=== PATIENT | female | born 1960 | race African-American/Black ===

== ENCOUNTER 2018-08-07 12:52 | Emergency (ER) | payer MEDICAID ==
[~2018-08-07] VITALS: Ht 162.6 cm; Wt 120.0 kg
[2018-08-07] MEDS ORDERED: BACITRACIN 15GM TUBE TOP ONE (15:00)
[2018-08-07] MEDS ORDERED: TRAMADOL 50MG TABLET PO ONE (15:00)
[2018-08-07 17:41] VITALS: BP 178/82
[2018-08-08] MEDS ORDERED: AMLO5TAB88 MT (11:34)
[2018-08-08] MEDS ORDERED: FURO40TA5 MT (11:34)
[2018-08-08] MEDS ORDERED: METO5TAB69 MT (11:34)
[2018-08-08] MEDS ORDERED: FERR220S12 PO (11:34)
== END 2018-08-07 17:50 | disposition home or self-care (01) ==
LOC: ER 13:11
DX: S80.812A Abrasion, left lower leg, initial encounter (principal); S80.11XA Contusion of right lower leg, initial encounter; W05.0XXA Fall from non-moving wheelchair, initial encounter; Y93.9 Activity, unspecified; Y92.9 Unspecified place or not applicable; Z88.0 Allergy status to penicillin
CPT/HCPCS: 73590; 99283; Z7610

== ENCOUNTER 2018-08-08 06:23 | Inpatient (IN) | payer MEDICAID ==
[2018-08-08] VITALS (7 sets, daily range): BP systolic 124–211; BP diastolic 62–115
[~2018-08-08] VITALS: Ht 162.6 cm; Wt 103.1 kg
[2018-08-08] MEDS ORDERED: FUROSEMIDE 40MG/4ML VIAL IVP ONE (07:00)
[2018-08-08] MEDS: VANCOMYCIN 1 G PREMIX 200 ML IV SCH ×2 (07:00→09:00)
[2018-08-08] MEDS ORDERED: ALBUTEROL (0.083%) 2.5MG/3ML NEB HHN STA (07:00)
[2018-08-08 07:11] LABS: HEMATOCRIT. 34.5 % (36.0-48.0); HEMOGLOBIN. 10.8 g/dL (12.0-16.0); MEAN CORPUSCULAR HEMOGLOBIN 27.9 pg (28.0-32.0); MEAN CORPUSCULAR VOLUME 89.1 fL (81.0-99.0); MEAN PLATELET VOLUME 9.7 fl (7.4-10.4); PLATELET 283 x1000/uL (130-400); RED BLOOD CELL COUNT 3.88 mill/uL (4.2-5.4); RED CELL DISTRIBUTION WIDTH 15.9 % (11.6-14.6)
[2018-08-08] MEDS ORDERED: HYDROCODONE/ACETAMINOPHEN 5/325MG TABLET PO ONE (07:15)
[2018-08-08] MEDS ORDERED: ONDANSETRON HCL 4MG/2ML INJ IV ONE (07:15)
[2018-08-08] MEDS ORDERED: LEVOFLOXACIN 500MG PREMIX 100 ML IV ONE (07:15)
[2018-08-08 07:18] LABS: CHLORIDE 108 mEq/L (98-107)
[2018-08-08 07:20] LABS: INR 1.1; PARTIAL THROMBOPLASTIN TIME 30.6 sec (23.4-31.0); PROTHROMBIN TIME 10.6 sec (9.1-11.1)
[2018-08-08 07:29] LABS: PLATELET ESTIMATE NORMAL
[2018-08-08 10:36] LABS: CLARITY URINE CLOUDY (CLEAR); COLOR URINE YELLOW (YELLOW); KETONES URINE NEGATIVE (NEGATIVE); LEUKOCYTE ESTERASE URINE NEGATIVE (NEGATIVE); NITRITE URINE NEGATIVE (NEGATIVE); OCCULT BLOOD URINE 1+ (NEGATIVE); PROTEIN URINE 3+ (NEGATIVE); SPECIFIC GRAVITY URINE 1.016 (1.005-1.030); UROBILINOGEN URINE 0.2 E.U./dL (0.2-1.0)
[2018-08-08] MEDS ORDERED: FURO40TA5 MT (11:34)
[2018-08-08] MEDS ORDERED: METO5TAB69 MT (11:34)
[2018-08-08] MEDS ORDERED: AMLO5TAB88 MT (11:34)
[2018-08-08] MEDS ORDERED: FERR220S12 PO (11:34)
[2018-08-08] MEDS ORDERED: HYDRALAZINE 20MG/ML VIAL IV PRN (13:30)
[2018-08-08] MEDS ORDERED: ONDANSETRON HCL 4MG/2ML INJ IV PRN (13:30)
[2018-08-08] MEDS ORDERED: ACETAMINOPHEN 325MG TABLET PO PRN (13:30)
[2018-08-08] MEDS ORDERED: IPRATROPIUM/ALBUTEROL 0.5-3(2.5)MG/3ML NEB INH PRN (13:30)
[2018-08-08] MEDS ORDERED: MAGNESIUM/ALUMINUM HYDROXIDE/SIMETHICONE 30ML UDC PO PRN (13:30)
[2018-08-08] MEDS ORDERED: GUAIFENESIN 200MG/10ML SUGAR FREE UDC PO PRN (13:30)
[2018-08-08] MEDS ORDERED: DIPHENHYDRAMINE 50MG/ML VIAL IV PRN (13:30)
[2018-08-08] MEDS ORDERED: HYDROCODONE/ACETAMINOPHEN 5/325MG TABLET PO PRN (13:45)
[2018-08-08] MEDS: HYDRALAZINE HCL 50MG TABLET PO SCH ×2 (14:06→22:00)
[2018-08-08] MEDS: SODIUM CHLORIDE 0.9% INJ 3ML FLUSH IVF SCH ×2 (14:07→22:48)
[2018-08-08] MEDS: ENOXAPARIN 30MG/0.3ML SYR SUBCUT SCH (14:11)
[2018-08-08] MEDS: NIFEDIPINE XL 60MG TAB PO SCH (14:29)
[2018-08-08] MEDS: CITRIC ACID/SODIUM CITRATE SOLN 30ML UDC PO SCH ×2 (15:27→17:52)
[2018-08-08] MEDS: FUROSEMIDE 100MG/10ML VIAL IVP SCH ×2 (15:28→22:48)
[2018-08-08 16:14] LABS: BG CARBOXYHEMOGLOBIN 0.3 % (0.5-1.5); BG DEOXYHEMOGLOBIN 12.8 % (0.0-5.0); BG FRACTION INSPIRED OXYGEN 32; BG METHEMOGLOBIN 0.2 % (0.0-1.5); BG OXYGEN SATURATION 87.1 % (92.0-98.5); BG OXYHEMOGLOBIN 86.7 % (94.0-97.0); BG PCO2 42.2 mmHg (35.0-45.0); BG PH 7.224 (7.350-7.450); BG PO2 59.2 mmHg (75.0-100.0); BG SAMPLE SITE RIGHT BRACHIAL; BG TOTAL HEMOGLOBIN 10.5 g/dL (12.0-18.0); BG VENT MODE NASAL CANNULA
[2018-08-08] MEDS ORDERED: SODIUM POLYSTYRENE SULFONATE 15 G/60 ML BOT PO NR (17:00)
[2018-08-09] VITALS (12 sets, daily range): BP systolic 127–150; BP diastolic 60–77
[2018-08-09] MEDS: HYDRALAZINE HCL 50MG TABLET PO SCH ×3 (06:00→22:00)
[2018-08-09] MEDS: SODIUM CHLORIDE 0.9% INJ 3ML FLUSH IVF SCH ×3 (06:41→22:02)
[2018-08-09 06:55] LABS: HEMATOCRIT. 31.9 % (36.0-48.0); HEMOGLOBIN. 10.2 g/dL (12.0-16.0); MEAN CORPUSCULAR HEMOGLOBIN 28.1 pg (28.0-32.0); MEAN CORPUSCULAR VOLUME 88.2 fL (81.0-99.0); MEAN PLATELET VOLUME 9.2 fl (7.4-10.4); PLATELET 231 x1000/uL (130-400); RED BLOOD CELL COUNT 3.62 mill/uL (4.2-5.4); RED CELL DISTRIBUTION WIDTH 15.6 % (11.6-14.6)
[2018-08-09] MEDS: ENOXAPARIN 30MG/0.3ML SYR SUBCUT SCH ×2 (09:00→09:41)
[2018-08-09] MEDS: CITRIC ACID/SODIUM CITRATE SOLN 30ML UDC PO SCH ×4 (09:00→17:43)
[2018-08-09 09:09] LABS: PHOSPHORUS 8.7 mg/dL (2.5-4.9)
[2018-08-09] MEDS: NIFEDIPINE XL 60MG TAB PO SCH (09:41)
[2018-08-09] MEDS ORDERED: SODIUM POLYSTYRENE SULFONATE 15 G/60 ML BOT PO NR (11:00)
[2018-08-09] MEDS ORDERED: LIDOCAINE HCL/EPINEPHRINE 1%-EPI 1:100,000 20 ML VIAL INFIL NR (11:15)
[2018-08-09] MEDS: SODIUM BICARBONATE 650 MG TABLET PO SCH ×3 (11:33→17:43)
[2018-08-09 12:38] LABS: PLATELET ESTIMATE NORMAL
[2018-08-09] MEDS: FUROSEMIDE 100MG/10ML VIAL IVP SCH ×2 (15:20→22:02)
[2018-08-09] MEDS: SODIUM HYPOCHLORITE 0.125% 473ML SOLUTION TOP SCH (15:20)
[2018-08-10] VITALS (12 sets, daily range): BP systolic 116–163; BP diastolic 57–92
[2018-08-10] MEDS: HYDRALAZINE HCL 50MG TABLET PO SCH ×3 (06:00→23:10)
[2018-08-10] MEDS: FUROSEMIDE 100MG/10ML VIAL IVP SCH ×3 (06:12→23:10)
[2018-08-10] MEDS: SODIUM CHLORIDE 0.9% INJ 3ML FLUSH IVF SCH ×3 (06:12→22:00)
[2018-08-10 06:43] LABS: HEMATOCRIT. 29.8 % (36.0-48.0); HEMOGLOBIN. 9.2 g/dL (12.0-16.0); MEAN CORPUSCULAR HEMOGLOBIN 27.6 pg (28.0-32.0); MEAN CORPUSCULAR VOLUME 89.4 fL (81.0-99.0); MEAN PLATELET VOLUME 9.3 fl (7.4-10.4); PLATELET 232 x1000/uL (130-400); RED BLOOD CELL COUNT 3.33 mill/uL (4.2-5.4); RED CELL DISTRIBUTION WIDTH 15.7 % (11.6-14.6)
[2018-08-10 07:53] LABS: PHOSPHORUS 8.7 mg/dL (2.5-4.9)
[2018-08-10] MEDS: CITRIC ACID/SODIUM CITRATE SOLN 30ML UDC PO SCH ×3 (08:45→17:00)
[2018-08-10] MEDS: ENOXAPARIN 30MG/0.3ML SYR SUBCUT SCH ×3 (08:45→09:00)
[2018-08-10] MEDS: NIFEDIPINE XL 60MG TAB PO SCH (08:46)
[2018-08-10] MEDS: SODIUM BICARBONATE 650 MG TABLET PO SCH ×3 (08:46→18:13)
[2018-08-10] MEDS: SODIUM HYPOCHLORITE 0.125% 473ML SOLUTION TOP SCH (13:53)
[2018-08-10] MEDS: SODIUM POLYSTYRENE SULFONATE 15 G/60 ML BOT PO SCH ×2 (13:53→21:00)
[2018-08-11] VITALS (10 sets, daily range): BP systolic 117–150; BP diastolic 54–84
[2018-08-11] MEDS: HYDRALAZINE HCL 50MG TABLET PO SCH ×3 (06:00→21:44)
[2018-08-11] MEDS: FUROSEMIDE 100MG/10ML VIAL IVP SCH ×3 (06:07→21:44)
[2018-08-11] MEDS: SODIUM CHLORIDE 0.9% INJ 3ML FLUSH IVF SCH ×3 (06:08→21:45)
[2018-08-11 06:59] LABS: MEAN CORPUSCULAR HEMOGLOBIN 28.2 pg (28.0-32.0); MEAN CORPUSCULAR VOLUME 90.8 fL (81.0-99.0); MEAN PLATELET VOLUME 9.6 fl (7.4-10.4); PLATELET 177 x1000/uL (130-400); RED CELL DISTRIBUTION WIDTH 16.2 % (11.6-14.6)
[2018-08-11 08:53] LABS: PHOSPHORUS 8.7 mg/dL (2.5-4.9)
[2018-08-11] MEDS: SODIUM HYPOCHLORITE 0.125% 473ML SOLUTION TOP SCH (09:00)
[2018-08-11] MEDS: SODIUM BICARBONATE 650 MG TABLET PO SCH ×3 (09:00→17:00)
[2018-08-11] MEDS: SODIUM POLYSTYRENE SULFONATE 15 G/60 ML BOT PO SCH ×2 (09:00→21:00)
[2018-08-11] MEDS: ENOXAPARIN 30MG/0.3ML SYR SUBCUT SCH (09:00)
[2018-08-11] MEDS: CITRIC ACID/SODIUM CITRATE SOLN 30ML UDC PO SCH ×3 (09:00→17:00)
[2018-08-11] MEDS: NIFEDIPINE XL 60MG TAB PO SCH (09:00)
[2018-08-11 10:55] LABS: PLATELET ESTIMATE NORMAL
[2018-08-11] MEDS ORDERED: EPOETIN ALFA 10000UNITS/ML VIAL SUBCUT NR (21:00)
[2018-08-12] VITALS (7 sets, daily range): BP systolic 129–148; BP diastolic 51–78
[2018-08-12] MEDS: HYDRALAZINE HCL 50MG TABLET PO SCH ×4 (06:05→22:05)
[2018-08-12] MEDS: SODIUM CHLORIDE 0.9% INJ 3ML FLUSH IVF SCH ×3 (06:05→22:04)
[2018-08-12] MEDS: FUROSEMIDE 100MG/10ML VIAL IVP SCH ×4 (06:05→22:05)
[2018-08-12 06:39] LABS: HEMATOCRIT. 26.9 % (36.0-48.0); HEMOGLOBIN. 8.6 g/dL (12.0-16.0); MEAN CORPUSCULAR HEMOGLOBIN 28.2 pg (28.0-32.0); MEAN CORPUSCULAR VOLUME 88.6 fL (81.0-99.0); MEAN PLATELET VOLUME 8.9 fl (7.4-10.4); PLATELET 239 x1000/uL (130-400); RED BLOOD CELL COUNT 3.04 mill/uL (4.2-5.4); RED CELL DISTRIBUTION WIDTH 15.5 % (11.6-14.6)
[2018-08-12 06:50] LABS: PLATELET ESTIMATE NORMAL
[2018-08-12 08:00] LABS: PHOSPHORUS 8.3 mg/dL (2.5-4.9)
[2018-08-12] MEDS: ENOXAPARIN 30MG/0.3ML SYR SUBCUT SCH ×2 (09:00→09:54)
[2018-08-12] MEDS: CITRIC ACID/SODIUM CITRATE SOLN 30ML UDC PO SCH ×3 (09:51→17:00)
[2018-08-12] MEDS: SODIUM POLYSTYRENE SULFONATE 15 G/60 ML BOT PO SCH ×2 (09:51→21:00)
[2018-08-12] MEDS: NIFEDIPINE XL 60MG TAB PO SCH (09:53)
[2018-08-12] MEDS: SODIUM BICARBONATE 650 MG TABLET PO SCH ×3 (09:53→17:00)
[2018-08-12] MEDS: SODIUM HYPOCHLORITE 0.125% 473ML SOLUTION TOP SCH (09:55)
[2018-08-12 21:17] LABS: PLATELET ESTIMATE NORMAL
[2018-08-13] VITALS: BP 139/75
[2018-08-13 04:00] VITALS: BP 142/65
[2018-08-13] MEDS: FUROSEMIDE 100MG/10ML VIAL IVP SCH ×3 (05:05→22:01)
[2018-08-13] MEDS: HYDRALAZINE HCL 50MG TABLET PO SCH ×3 (05:05→21:59)
[2018-08-13] MEDS: SODIUM CHLORIDE 0.9% INJ 3ML FLUSH IVF SCH ×3 (05:06→21:59)
[2018-08-13 06:03] LABS: HEMATOCRIT. 27.2 % (36.0-48.0); HEMOGLOBIN. 8.7 g/dL (12.0-16.0); MEAN CORPUSCULAR HEMOGLOBIN 28.2 pg (28.0-32.0); MEAN CORPUSCULAR VOLUME 88.4 fL (81.0-99.0); MEAN PLATELET VOLUME 9.5 fl (7.4-10.4); PLATELET 264 x1000/uL (130-400); RED BLOOD CELL COUNT 3.08 mill/uL (4.2-5.4); RED CELL DISTRIBUTION WIDTH 16.2 % (11.6-14.6)
[2018-08-13 08:00] VITALS: BP 126/69
[2018-08-13 08:48] LABS: PHOSPHORUS 8.4 mg/dL (2.5-4.9)
[2018-08-13] MEDS: SODIUM BICARBONATE 650 MG TABLET PO SCH ×3 (08:52→17:00)
[2018-08-13] MEDS: SODIUM HYPOCHLORITE 0.125% 473ML SOLUTION TOP SCH (08:52)
[2018-08-13] MEDS: ENOXAPARIN 30MG/0.3ML SYR SUBCUT SCH (08:55)
[2018-08-13] MEDS: CITRIC ACID/SODIUM CITRATE SOLN 30ML UDC PO SCH ×3 (08:55→17:00)
[2018-08-13] MEDS: NIFEDIPINE XL 60MG TAB PO SCH (08:56)
[2018-08-13 12:00] VITALS: BP 137/71
[2018-08-13] MEDS: CALCIUM ACETATE 667MG CAPSULE PO SCH ×2 (12:52→19:01)
[2018-08-13 16:00] VITALS: BP 136/67
[2018-08-13] MEDS ORDERED: HYDRALAZINE 10 MG in SODIUM CHLORIDE 0.9% 49.5 ML IV PRN (16:30)
[2018-08-13 20:00] VITALS: BP 149/77
[2018-08-14] VITALS: BP 180/79
[2018-08-14] MEDS: CLONIDINE 0.1MG TABLET PO PRN (03:56)
[2018-08-14 04:00] VITALS: BP 141/77
[2018-08-14 05:05] LABS: PLATELET ESTIMATE NORMAL
[2018-08-14] MEDS: FUROSEMIDE 100MG/10ML VIAL IVP SCH ×3 (06:03→21:25)
[2018-08-14] MEDS: HYDRALAZINE HCL 50MG TABLET PO SCH ×3 (06:04→21:25)
[2018-08-14] MEDS: SODIUM CHLORIDE 0.9% INJ 3ML FLUSH IVF SCH ×3 (06:09→22:00)
[2018-08-14 08:00] VITALS: BP 133/69
[2018-08-14] MEDS: CITRIC ACID/SODIUM CITRATE SOLN 30ML UDC PO SCH ×4 (09:00→17:00)
[2018-08-14] MEDS: ENOXAPARIN 30MG/0.3ML SYR SUBCUT SCH (09:00)
[2018-08-14] MEDS: SODIUM BICARBONATE 650 MG TABLET PO SCH ×3 (09:00→18:31)
[2018-08-14] MEDS: CALCIUM ACETATE 667MG CAPSULE PO SCH ×3 (09:56→18:31)
[2018-08-14] MEDS: NIFEDIPINE XL 60MG TAB PO SCH (09:56)
[2018-08-14] MEDS: SODIUM HYPOCHLORITE 0.125% 473ML SOLUTION TOP SCH (11:31)
[2018-08-14 12:00] VITALS: BP 122/67
[2018-08-14 16:00] VITALS: BP 130/70
[2018-08-14 20:00] VITALS: BP 144/75
[2018-08-15] VITALS: BP 148/76
[2018-08-15 04:00] VITALS: BP 175/90
[2018-08-15] MEDS: FUROSEMIDE 100MG/10ML VIAL IVP SCH ×3 (05:12→22:35)
[2018-08-15] MEDS: HYDRALAZINE HCL 50MG TABLET PO SCH ×3 (05:12→22:34)
[2018-08-15] MEDS: SODIUM CHLORIDE 0.9% INJ 3ML FLUSH IVF SCH ×3 (05:21→14:00)
[2018-08-15 06:41] LABS: HEMATOCRIT. 28.1 % (36.0-48.0); MEAN CORPUSCULAR HEMOGLOBIN 28.3 pg (28.0-32.0); MEAN CORPUSCULAR VOLUME 88.1 fL (81.0-99.0); PLATELET 271 x1000/uL (130-400); RED BLOOD CELL COUNT 3.19 mill/uL (4.2-5.4); RED CELL DISTRIBUTION WIDTH 15.3 % (11.6-14.6)
[2018-08-15 07:57] LABS: PHOSPHORUS 8.8 mg/dL (2.5-4.9)
[2018-08-15 08:00] VITALS: BP 169/78
[2018-08-15] MEDS: SODIUM HYPOCHLORITE 0.125% 473ML SOLUTION TOP SCH (09:00)
[2018-08-15] MEDS: ENOXAPARIN 30MG/0.3ML SYR SUBCUT SCH (09:00)
[2018-08-15] MEDS: CITRIC ACID/SODIUM CITRATE SOLN 30ML UDC PO SCH ×3 (09:00→16:06)
[2018-08-15] MEDS: SODIUM BICARBONATE 650 MG TABLET PO SCH ×3 (09:00→16:06)
[2018-08-15] MEDS: CALCIUM ACETATE 667MG CAPSULE PO SCH ×3 (09:16→17:34)
[2018-08-15] MEDS: NIFEDIPINE XL 60MG TAB PO SCH (09:23)
[2018-08-15 10:04] LABS: PLATELET ESTIMATE NORMAL
[2018-08-15] MEDS: CLONIDINE 0.1MG TABLET PO PRN (10:05)
[2018-08-15 12:00] VITALS: BP 163/91
[2018-08-15] MEDS ORDERED: SODIUM POLYSTYRENE SULFONATE 15 G/60 ML BOT PO SCH (15:00)
[2018-08-15 16:00] VITALS: BP 175/78
[2018-08-15 20:38] VITALS: BP 118/70
[2018-08-16 00:32] VITALS: BP 115/68
[2018-08-16 04:00] VITALS: BP 155/69
[2018-08-16] MEDS: HYDRALAZINE HCL 50MG TABLET PO SCH ×3 (05:48→23:15)
[2018-08-16] MEDS: FUROSEMIDE 100MG/10ML VIAL IVP SCH ×3 (05:48→23:14)
[2018-08-16 06:45] LABS: HEMATOCRIT. 28.4 % (36.0-48.0); HEMOGLOBIN. 9.1 g/dL (12.0-16.0); MEAN CORPUSCULAR HEMOGLOBIN 28.1 pg (28.0-32.0); MEAN CORPUSCULAR VOLUME 87.8 fL (81.0-99.0); PLATELET 283 x1000/uL (130-400); RED BLOOD CELL COUNT 3.23 mill/uL (4.2-5.4); RED CELL DISTRIBUTION WIDTH 15.9 % (11.6-14.6)
[2018-08-16 07:27] LABS: PHOSPHORUS 7.9 mg/dL (2.5-4.9)
[2018-08-16 08:00] VITALS: BP 139/73
[2018-08-16] MEDS: SODIUM HYPOCHLORITE 0.125% 473ML SOLUTION TOP SCH ×2 (09:00→09:43)
[2018-08-16] MEDS: ENOXAPARIN 30MG/0.3ML SYR SUBCUT SCH ×2 (09:00→09:42)
[2018-08-16] MEDS: NIFEDIPINE XL 60MG TAB PO SCH (09:43)
[2018-08-16] MEDS: CALCIUM ACETATE 667MG CAPSULE PO SCH ×3 (09:43→17:27)
[2018-08-16 12:00] VITALS: BP 135/67
[2018-08-16 16:00] VITALS: BP 157/83
[2018-08-16 20:00] VITALS: BP 147/79
[2018-08-17] VITALS: BP 135/74
[2018-08-17 04:00] VITALS: BP 148/101
[2018-08-17] MEDS: FUROSEMIDE 100MG/10ML VIAL IVP SCH ×3 (05:37→21:47)
[2018-08-17] MEDS: HYDRALAZINE HCL 50MG TABLET PO SCH ×3 (05:38→21:47)
[2018-08-17 07:01] LABS: HEMATOCRIT. 27.3 % (36.0-48.0); HEMOGLOBIN. 8.6 g/dL (12.0-16.0); MEAN CORPUSCULAR HEMOGLOBIN 27.6 pg (28.0-32.0); MEAN CORPUSCULAR VOLUME 87.7 fL (81.0-99.0); MEAN PLATELET VOLUME 8.4 fl (7.4-10.4); PLATELET 288 x1000/uL (130-400); RED BLOOD CELL COUNT 3.12 mill/uL (4.2-5.4); RED CELL DISTRIBUTION WIDTH 15.7 % (11.6-14.6)
[2018-08-17 07:49] LABS: PHOSPHORUS 8.5 mg/dL (2.5-4.9)
[2018-08-17 08:00] VITALS: BP 140/73
[2018-08-17] MEDS: NIFEDIPINE XL 60MG TAB PO SCH (08:32)
[2018-08-17] MEDS: CALCIUM ACETATE 667MG CAPSULE PO SCH ×3 (08:33→17:34)
[2018-08-17] MEDS: SODIUM HYPOCHLORITE 0.125% 473ML SOLUTION TOP SCH (08:33)
[2018-08-17] MEDS: ENOXAPARIN 30MG/0.3ML SYR SUBCUT SCH (08:33)
[2018-08-17 11:22] LABS: PLATELET ESTIMATE NORMAL
[2018-08-17 11:46] VITALS: BP 148/78
[2018-08-17 13:47] LABS: PLATELET ESTIMATE NORMAL
[2018-08-17 16:16] VITALS: BP 129/64
[2018-08-17 20:00] VITALS: BP 167/87
[2018-08-17] MEDS: SODIUM CHLORIDE 0.9% INJ 3ML FLUSH IVF SCH (21:53)
[2018-08-18] VITALS: BP 160/79
[2018-08-18 04:00] VITALS: BP 171/80
[2018-08-18] MEDS: SODIUM CHLORIDE 0.9% INJ 3ML FLUSH IVF SCH ×3 (05:52→21:07)
[2018-08-18] MEDS: FUROSEMIDE 100MG/10ML VIAL IVP SCH ×3 (05:52→21:18)
[2018-08-18] MEDS: HYDRALAZINE HCL 50MG TABLET PO SCH ×3 (05:53→21:17)
[2018-08-18 08:00] VITALS: BP 123/63
[2018-08-18] MEDS: NIFEDIPINE XL 60MG TAB PO SCH (08:51)
[2018-08-18] MEDS: CALCIUM ACETATE 667MG CAPSULE PO SCH ×3 (08:51→15:33)
[2018-08-18] MEDS: ENOXAPARIN 30MG/0.3ML SYR SUBCUT SCH (08:56)
[2018-08-18] MEDS: SODIUM HYPOCHLORITE 0.125% 473ML SOLUTION TOP SCH (08:57)
[2018-08-18 12:00] VITALS: BP 134/71
[2018-08-18 16:00] VITALS: BP 121/59
[2018-08-18 20:00] VITALS: BP 165/85
[2018-08-19] VITALS: BP 170/92
[2018-08-19] MEDS: CLONIDINE 0.1MG TABLET PO PRN (00:29)
[2018-08-19 04:00] VITALS: BP 168/83
[2018-08-19] MEDS: HYDRALAZINE HCL 50MG TABLET PO SCH ×3 (05:34→21:16)
[2018-08-19] MEDS: FUROSEMIDE 100MG/10ML VIAL IVP SCH ×3 (05:34→21:16)
[2018-08-19] MEDS: SODIUM CHLORIDE 0.9% INJ 3ML FLUSH IVF SCH ×3 (05:34→21:16)
[2018-08-19 08:00] VITALS: BP 102/49
[2018-08-19] MEDS: ENOXAPARIN 30MG/0.3ML SYR SUBCUT SCH (08:47)
[2018-08-19] MEDS: SODIUM HYPOCHLORITE 0.125% 473ML SOLUTION TOP SCH (08:47)
[2018-08-19] MEDS: CALCIUM ACETATE 667MG CAPSULE PO SCH ×3 (10:11→16:23)
[2018-08-19] MEDS: NIFEDIPINE XL 60MG TAB PO SCH (10:12)
[2018-08-19 12:00] VITALS: BP 119/64
[2018-08-19 16:00] VITALS: BP 107/61
[2018-08-19 20:00] VITALS: BP 118/69
[2018-08-20] VITALS: BP 121/70
[2018-08-20 04:00] VITALS: BP 114/63
[2018-08-20] MEDS: HYDRALAZINE HCL 50MG TABLET PO SCH ×3 (05:39→22:56)
[2018-08-20] MEDS: FUROSEMIDE 100MG/10ML VIAL IVP SCH ×3 (05:39→22:56)
[2018-08-20] MEDS: SODIUM CHLORIDE 0.9% INJ 3ML FLUSH IVF SCH ×3 (06:00→22:07)
[2018-08-20 06:51] LABS: HEMATOCRIT. 25.9 % (36.0-48.0); HEMOGLOBIN. 8.5 g/dL (12.0-16.0); MEAN CORPUSCULAR HEMOGLOBIN 28.6 pg (28.0-32.0); MEAN CORPUSCULAR VOLUME 87.4 fL (81.0-99.0); MEAN PLATELET VOLUME 8.6 fl (7.4-10.4); PLATELET 302 x1000/uL (130-400); RED BLOOD CELL COUNT 2.97 mill/uL (4.2-5.4); RED CELL DISTRIBUTION WIDTH 15.6 % (11.6-14.6)
[2018-08-20 08:00] VITALS: BP 114/70
[2018-08-20 08:21] LABS: PHOSPHORUS 8.1 mg/dL (2.5-4.9)
[2018-08-20] MEDS: NIFEDIPINE XL 60MG TAB PO SCH ×2 (08:56→09:56)
[2018-08-20] MEDS: CALCIUM ACETATE 667MG CAPSULE PO SCH ×4 (08:57→17:37)
[2018-08-20] MEDS: ENOXAPARIN 30MG/0.3ML SYR SUBCUT SCH (08:57)
[2018-08-20] MEDS: SODIUM HYPOCHLORITE 0.125% 473ML SOLUTION TOP SCH (09:00)
[2018-08-20] MEDS ORDERED: CLONIDINE 0.2MG TABLET PO PRN (10:12)
[2018-08-20 12:00] VITALS: BP 125/74
[2018-08-20 14:07] LABS: PLATELET ESTIMATE NORMAL
[2018-08-20 16:00] VITALS: BP 136/77
[2018-08-20 20:00] VITALS: BP 161/94
[2018-08-21] VITALS: BP 145/86
[2018-08-21 04:00] VITALS: BP 140/79
[2018-08-21] MEDS: SODIUM CHLORIDE 0.9% INJ 3ML FLUSH IVF SCH ×2 (06:25→13:41)
[2018-08-21] MEDS: FUROSEMIDE 100MG/10ML VIAL IVP SCH ×2 (06:25→13:41)
[2018-08-21] MEDS: HYDRALAZINE HCL 50MG TABLET PO SCH ×2 (06:27→13:40)
[2018-08-21] MEDS: CALCIUM ACETATE 667MG CAPSULE PO SCH ×3 (07:50→17:50)
[2018-08-21 08:00] VITALS: BP 142/75
[2018-08-21] MEDS: SODIUM HYPOCHLORITE 0.125% 473ML SOLUTION TOP SCH (09:00)
[2018-08-21] MEDS: ENOXAPARIN 30MG/0.3ML SYR SUBCUT SCH (09:00)
[2018-08-21] MEDS: NIFEDIPINE XL 60MG TAB PO SCH (09:27)
[2018-08-21 12:00] VITALS: BP 172/88
[2018-08-21 16:00] VITALS: BP 149/84
[2018-08-21 17:09] VITALS: BP 172/88
== END 2018-08-21 19:30 | DRG 133 ==
LOC: ER 06:23 → 5EST 08:15 → EDBEDREQ 08:18 → ENRESERV 10:00 → 6EST 08-12 12:34
PROVIDERS: ADMIT Internal Medicine; ATTEND Internal Medicine
DX: J96.91 Respiratory failure, unspecified with hypoxia (principal); I13.2 Hypertensive heart and chronic kidney disease with heart failure and with stage 5 chronic kidney disease, or end stage renal disease; E43 Unspecified severe protein-calorie malnutrition; L89.150 Pressure ulcer of sacral region, unstageable; E87.2 Acidosis; J90 Pleural effusion, not elsewhere classified; E66.01 Morbid (severe) obesity due to excess calories; E87.5 Hyperkalemia; Z66 Do not resuscitate; N18.6 End stage renal disease; J98.11 Atelectasis; I73.9 Peripheral vascular disease, unspecified; D63.8 Anemia in other chronic diseases classified elsewhere; Z51.5 Encounter for palliative care; Z99.2 Dependence on renal dialysis; Z87.891 Personal history of nicotine dependence; Z89.612 Acquired absence of left leg above knee; Z91.14 Patient's other noncompliance with medication regimen; Z99.3 Dependence on wheelchair; Z75.1 Person awaiting admission to adequate facility elsewhere; Z89.611 Acquired absence of right leg above knee; Z88.0 Allergy status to penicillin; Z68.39 Body mass index [BMI] 39.0-39.9, adult; Z82.49 Family history of ischemic heart disease and other diseases of the circulatory system; I50.33 Acute on chronic diastolic (congestive) heart failure
CPT/HCPCS: 36415; 36600; 71045; 73590; 76770; 80048; 82375; 82805; 83036; 83605; 83735; 83880; 84100; 84134; 84145; 84443; 84484; 93005; 93306; 93970; 94640; 96361; 96374; 99285; J0360; J0885; J1650; J1940; J1956; J2405; J3370; J3490; J7611